=== PATIENT | male | born 1995 | race Two or more races ===

== ENCOUNTER 2021-07-30 14:12 | Emergency (ER) | payer SELFPAY ==
[2021-07-30] MEDS ORDERED: Sodium Chloride 0.9% 10 ML Syringe FLUSH PRN (14:55)
--- NOTE | 2021-07-30 15:38 | CR ---
Chest: Frontal view of the chest was obtained. Comparison: No prior chest imaging is available. Heart size and mediastinum are normal. Minimal density is seen within the left lung base. Lungs otherwise are clear. Bony structures show nothing acute. Impression: 1. Minimal density within the left lung base. Small area of pneumonia is possible likely COVID. Diagnostic code #3
--- NOTE | 2021-07-30 15:45 | EDM.PDOC ---
ED HPI GENERAL MEDICAL PROBLEM - General Chief Complaint: Chest Pain Stated Complaint: CHEST PAIN Time Seen by Provider: 07/30/21 14:55 Source of Information: Reports: Patient, RN Notes Reviewed History Limitations: Reports: No Limitations - History of Present Illness INITIAL COMMENTS - FREE TEXT/NARRATIVE: Patient is a 26-year-old male presenting to the emergency department with complaints of 2-day history of fever, cough, shortness of breath, chest pain, back pain. He tested positive for Covid yesterday. He has not vaccinated. T- max at home was 104.0. He is afebrile in ER and has not had Tylenol since 10 AM this morning. He describes a dull aching in his left chest since yesterday which is worse with taking a deep breath. He is tender in the chest as well. Denies any chronic health conditions. He is using Tylenol and ibuprofen as needed for fever and discomfort. Chest Pain Score (Numeric/FACES): 8 - Related Data Allergies Allergy/AdvReac Type Severity Reaction Status Date / Time No Known Allergies Allergy Verified 07/30/21 14:36 Home Meds: Home Meds dexAMETHasone [Decadron] 6 mg PO DAILY 5 Days #5 tablet 07/30/21 [Rx] Past Medical History Respiratory History: Reports: Asthma Immunologic History: Reports: AIDS - Infectious Disease History Infectious Disease History: Reports: Novel Coronavirus Social & Family History - Tobacco Use Tobacco Use Status *Q: Never Tobacco User - Caffeine Use Caffeine Use: Reports: Energy Drinks - Recreational Drug Use Recreational Drug Use: No ED ROS GENERAL - Review of Systems Review Of Systems: See Below Constitutional: Reports: Fever, Chills, Fatigue HEENT: Reports: No Symptoms Respiratory: Reports: Shortness of Breath, Pleuritic Chest Pain, Cough Cardiovascular: Reports: Chest Pain. Denies: Dyspnea on Exertion, Lightheadedness, Syncope Endocrine: Reports: No Symptoms GI/Abdominal: Reports: No Symptoms : Reports: No Symptoms Musculoskeletal: Reports: No Symptoms Skin: Reports: No Symptoms Neurological: Reports: No Symptoms Psychiatric: Reports: No Symptoms Hematologic/Lymphatic: Reports: No Symptoms Immunologic: Reports: No Symptoms ED EXAM, GENERAL - Physical Exam Exam: See Below Exam Limited By: No Limitations General Appearance: Alert, WD/WN, No Apparent Distress Respiratory/Chest: No Respiratory Distress, Lungs Clear, Normal Breath Sounds, No Accessory Muscle Use, Chest Non-Tender Cardiovascular: Normal Peripheral Pulses, Regular Rate, Rhythm, No Edema, No Gallop, No JVD, No Murmur, No Rub GI/Abdominal: Normal Bowel Sounds, Soft, Non-Tender, No Organomegaly, No Distention, No Abnormal Bruit, No Mass Neurological: Alert, Oriented, CN II-XII Intact, Normal Cognition, Normal Gait, Normal Reflexes, No Motor/Sensory Deficits Psychiatric: Normal Affect, Normal Mood Skin Exam: Warm, Dry, Intact, Normal Color, No Rash #1 Interpretation EKG Date: 07/30/21 Time: 14:23 Rhythm: NSR Rate (Beats/Min): 88 [place]: Normal P-Wave: Present QRS: Normal ST-T: Normal QT: Normal Course - Vital Signs Last Recorded V/S: Last Vital Signs Temp 98.1 F 07/30/21 14:32 Pulse 89 07/30/21 14:32 Resp 14 07/30/21 14:32 BP 131/91 H 07/30/21 14:32 Pulse Ox 96 07/30/21 14:32 - Orders/Labs/Meds Orders: Active Orders 24 hr Category Date Time Status Peripheral IV Insertion Adult [OM.PC] Stat Oth 07/30/21 14:55 Ordered Labs: Laboratory Tests 07/30/21 07/30/21 07/30/21 Range/Units 14:32 14:32 14:32 WBC 5.86 (4.23-9.07) K/mm3 RBC 5.49 (4.63-6.08) M/mm3 Hgb 15.5 (13.7-17.5) gm/dl Hct 47.7 (40.1-51.0) % MCV 86.9 (79.0-92.2) fl MCH 28.2 (25.7-32.2) pg MCHC 32.5 (32.2-35.5) g/dl RDW Std Deviation 45.7 H (35.1-43.9) fL Plt Count 238 (163-337) K/mm3 MPV 10.3 (9.4-12.3) fl Neut % (Auto) 47.2 (34.0-67.9) % Lymph % (Auto) 31.4 (21.8-53.1) % [place] % (Auto) 20.8 H (5.3-12.2) % Eos % (Auto) 0.3 L (0.8-7.0) Baso % (Auto) 0.3 (0.1-1.2) % Neut # (Auto) 2.76 (1.78-5.38) K/mm3 Lymph # (Auto) 1.84 (1.32-3.57) K/mm3 [place] # (Auto) 1.22 H (0.30-0.82) K/mm3 Eos # (Auto) 0.02 L (0.04-0.54) K/mm3 Baso # (Auto) 0.02 (0.01-0.08) K/mm3 Manual Slide Review Abnormal smear D-Dimer, Quantitative < 0.19 L (0.19-0.50) mg/L Sodium 142 (136-145) mEq/L Potassium 4.0 (3.5-5.1) mEq/L Chloride 106 (98-107) mEq/L Carbon Dioxide 30 (21-32) mEq/L Anion Gap 10.0 (5-15) BUN 15 (7-18) mg/dL Creatinine 1.1 (0.7-1.3) mg/dL Est Cr Clr Drug Dosing 101.77 mL/min Estimated GFR (MDRD) > 60 (>60) mL/min BUN/Creatinine Ratio 13.6 L (14-18) Glucose 88 (70-99) mg/dL Calcium 8.6 (8.5-10.1) mg/dL Total Bilirubin 0.3 (0.2-1.0) mg/dL AST 18 (15-37) U/L ALT 26 (16-63) U/L Alkaline Phosphatase 70 (46-116) U/L Troponin I < 0.017 (0.00-0.056) ng/mL C-Reactive Protein <0.2 (<1.0) mg/dL NT-Pro-B Natriuret Pep (0-125) pg/mL Total Protein 7.7 (6.4-8.2) g/dl Albumin 3.7 (3.4-5.0) g/dl Globulin 4.0 gm/dL Albumin/Globulin Ratio 0.9 L (1-2) 10/27/21 Range/Units 14:32 WBC (4.23-9.07) K/mm3 RBC (4.63-6.08) M/mm3 Hgb (13.7-17.5) gm/dl Hct (40.1-51.0) % MCV (79.0-92.2) fl MCH (25.7-32.2) pg MCHC (32.2-35.5) g/dl RDW Std Deviation (35.1-43.9) fL Plt Count (163-337) K/mm3 MPV (9.4-12.3) fl Neut % (Auto) (34.0-67.9) % Lymph % (Auto) (21.8-53.1) % [place] % (Auto) (5.3-12.2) % Eos % (Auto) (0.8-7.0) Baso % (Auto) (0.1-1.2) % Neut # (Auto) (1.78-5.38) K/mm3 Lymph # (Auto) (1.32-3.57) K/mm3 [place] # (Auto) (0.30-0.82) K/mm3 Eos # (Auto) (0.04-0.54) K/mm3 Baso # (Auto) (0.01-0.08) K/mm3 Manual Slide Review D-Dimer, Quantitative (0.19-0.50) mg/L Sodium (136-145) mEq/L Potassium (3.5-5.1) mEq/L Chloride (98-107) mEq/L Carbon Dioxide (21-32) mEq/L Anion Gap (5-15) BUN (7-18) mg/dL Creatinine (0.7-1.3) mg/dL Est Cr Clr Drug Dosing mL/min Estimated GFR (MDRD) (>60) mL/min BUN/Creatinine Ratio (14-18) Glucose (70-99) mg/dL Calcium (8.5-10.1) mg/dL Total Bilirubin (0.2-1.0) mg/dL AST (15-37) U/L ALT (16-63) U/L Alkaline Phosphatase (46-116) U/L Troponin I (0.00-0.056) ng/mL C-Reactive Protein (<1.0) mg/dL NT-Pro-B Natriuret Pep < 5 (0-125) pg/mL Total Protein (6.4-8.2) g/dl Albumin (3.4-5.0) g/dl Globulin gm/dL Albumin/Globulin Ratio (1-2) Meds: Medications Discontinued Medications Generic Name Dose Route Start Last Admin Trade Name Micah PRN Reason Stop Dose Admin Sodium Chloride 10 ml 07/30/21 14:55 07/30/21 14:57 Sodium Chloride 0.9% 10 Ml Syringe FLUSH 10 ml ASDIRECTED PRN Administration Keep Vein Open - Re-Assessments/Exams Free Text/Narrative Re-Assessment/Exam: Patient is a 26-year-old male presenting to the emergency department for evaluation of Covid symptoms. He reports left-sided chest discomfort. On exam, he is tender to palpation throughout his left-sided anterior chest wall. Exam is otherwise unremarkable. He is afebrile. Oxygen 96% on room air. I have ordered blood work, chest x-ray, EKG. 07/30/21 15:47 Hematology is unremarkable. D-dimer, troponin, CRP are undetectably low. EKG shows normal sinus rhythm at 88 with no evidence of acute ischemia. Chest x-ray shows a minimal density within the left lung base. Small areas of pneumonia is possible, likely Covid. Patient will be discharged home with prescription for dexamethasone. He will also be sent with a pulse oximeter. Discussed return precautions. Discharge instructions as document. Departure - Departure Time of Disposition: 16:43 Disposition: Home, Self-Care 01 Condition: Good Clinical Impression: COVID-19 Prescriptions: dexAMETHasone [Decadron] 6 mg PO DAILY 5 Days #5 tablet Instructions: COVID-19 Referrals: PCP,None [Primary Care Provider] - Forms: ED Department Discharge Additional Instructions: Take the dexamethasone as prescribed. Use Tylenol and ibuprofen as needed for fever and discomfort. Ensure you are taking an adequate amount of fluid. Check your oxygen saturations intermittently throughout the day. If you are maintaining a saturation of 88% or lower and not coming up after resting for 15 minutes, or you experience any other new or worsening symptoms of concern, ple ase return to the emergency department for reevaluation. Sepsis Event Note (ED) - Evaluation Sepsis Screening Result: No Definite Risk - Focused Exam Vital Signs: Vital Signs Temp Pulse Resp BP Pulse Ox 07/30/21 14:32 98.1 F 89 14 131/91 H 96 - My Orders Last 24 Hours: My Active Orders 07/30/21 14:55 Peripheral IV Insertion Adult [OM.PC] Stat - Assessment/Plan Last 24 Hours: My Active Orders 07/30/21 14:55 Peripheral IV Insertion Adult [OM.PC] Stat
== END 2021-07-30 16:58 | disposition home or self-care (01) ==
LOC: JD.ED 14:12
DX: U07.1 COVID-19 (principal)
CPT/HCPCS: 36415; 71045; 71045-26; 80053; 83880; 84484; 85025; 85379; 86140; 93005; 99285-25

== ENCOUNTER 2021-08-05 13:45 | Emergency (ER) | payer SELFPAY ==
[2021-08-05] MEDS ORDERED: FLU Vacc QS2021-22 36MOS UP/PF 60 MCG/0.5 ML Syringe IM ONE (14:45)
--- NOTE | 2021-08-05 15:34 | US ---
Right lower extremity deep venous ultrasound: Duplex and color Doppler evaluation was obtained of the right common femoral, proximal greater saphenous, superficial femoral, popliteal, posterior tibial and peroneal veins. Left common femoral vein was also evaluated. Comparison: No prior venous imaging is available. Findings: Visualized veins show normal phasic flow, augmentation and compression. Impression: 1. No findings of deep venous thrombosis within the right lower extremity or within the left common femoral vein. Diagnostic code #1
--- NOTE | 2021-08-05 15:41 | EDM.PDOC ---
ED HPI GENERAL MEDICAL PROBLEM - General Chief Complaint: Lower Extremity Injury/Pain Stated Complaint: COVID+ LEG PAINS Time Seen by Provider: 08/05/21 14:01 Source of Information: Reports: Patient History Limitations: Reports: No Limitations - History of Present Illness INITIAL COMMENTS - FREE TEXT/NARRATIVE: 26-year-old male presents the emergency department today with complaints of pain into the back of his right calf. Patient was diagnosed with Covid on July 29, 2021. He states that he has done fairly well with symptoms of Covid. However, over the past few days he has developed pain to the back of his right calf primarily in the popliteal space. He states that approximately 1 week ago his mother had Covid and due to a major PE. He is paranoid he may have a DVT as a result of Covid. Patient states he is otherwise healthy. Takes an 81 mg aspirin daily. Right Lower Leg Pain Score (Numeric/FACES): 8 - Related Data Allergies Allergy/AdvReac Type Severity Reaction Status Date / Time No Known Allergies Allergy Verified 08/05/21 14:05 Home Meds: Home Meds . [No Known Home Meds] 08/05/21 [History] Past Medical History Respiratory History: Reports: Asthma Immunologic History: Reports: AIDS - Infectious Disease History Infectious Disease History: Reports: Novel Coronavirus Social & Family History - Family History Family Medical History: No Pertinent Family History - Tobacco Use Tobacco Use Status *Q: Never Tobacco User Second Hand Smoke Exposure: No - Caffeine Use Caffeine Use: Reports: Energy Drinks - Recreational Drug Use Recreational Drug Use: No Review of Systems - Review of Systems Review Of Systems: Comprehensive ROS is negative, except as noted in HPI. ED EXAM, GENERAL - Physical Exam Exam: See Below Exam Limited By: No Limitations General Appearance: Alert, WD/WN, No Apparent Distress Ears: Normal External Exam, Hearing Grossly Normal Nose: Normal Inspection Throat/Mouth: Normal Inspection, Normal Lips, Normal Voice, No Airway Compromise Head: Atraumatic Neck: Normal Inspection, Supple Respiratory/Chest: No Respiratory Distress, Lungs Clear, Normal Breath Sounds, No Accessory Muscle Use, Chest Non-Tender Cardiovascular: Normal Peripheral Pulses, Regular Rate, Rhythm, No Edema, No Murmur Peripheral Pulses: 2+: Radial (L), Radial (R), Dorsalis Pedis (L), Dorsalis Pedis (R) GI/Abdominal: Normal Bowel Sounds, Soft, Non-Tender, No Distention (Male) Exam: Deferred Rectal (Males) Exam: Deferred Back Exam: Normal Inspection Extremities: Normal Inspection, Normal Range of Motion, No Pedal Edema, Normal Capillary Refill. No: Non-Tender (Tenderness noted to the back of the right calf and popliteal space) Neurological: Alert, Oriented, Normal Cognition Psychiatric: Normal Affect, Normal Mood Skin Exam: Warm, Dry, Intact, Normal Color, No Rash Lymphatic: No Adenopathy Course - Vital Signs Text/Narrative:: As stated above, patient presents with pain noted to the back of his left proximal calf area primarily in the popliteal space. Patient does complain of worsening pain when foot is flexed. I do not appreciate any warmth, redness or swelling to the area. Patient's vital signs are stable at this time. Lung sounds are clear. Will obtain ultrasound of the right lower extremity to rule out DVT. We will also obtain CBC, CMP and a magnesium level to check for any electrolyte abnormalities. Last Recorded V/S: Last Vital Signs Temp 97.9 F 08/05/21 13:59 Pulse 78 08/05/21 13:59 Resp 18 08/05/21 13:59 BP 142/92 H 08/05/21 13:59 Pulse Ox 98 08/05/21 13:59 - Orders/Labs/Meds Orders: Active Orders 24 hr Category Date Time Status Vaccine to be Administered/Admin Charge [RC] ASDIRECTED Care 08/05/21 14:09 Active Labs: Laboratory Tests 08/05/21 08/05/21 Range/Units 15:36 15:36 WBC 11.11 H (4.23-9.07) K/mm3 RBC 5.61 (4.63-6.08) M/mm3 Hgb 15.8 (13.7-17.5) gm/dl Hct 48.4 (40.1-51.0) % MCV 86.3 (79.0-92.2) fl MCH 28.2 (25.7-32.2) pg MCHC 32.6 (32.2-35.5) g/dl RDW Std Deviation 45.1 H (35.1-43.9) fL Plt Count 281 (163-337) K/mm3 MPV 10.0 (9.4-12.3) fl Neut % (Auto) 57.1 (34.0-67.9) % Lymph % (Auto) 29.1 (21.8-53.1) % [place] % (Auto) 11.8 (5.3-12.2) % Eos % (Auto) 0.3 L (0.8-7.0) Baso % (Auto) 0.3 (0.1-1.2) % Neut # (Auto) 6.35 H (1.78-5.38) K/mm3 Lymph # (Auto) 3.23 (1.32-3.57) K/mm3 [place] # (Auto) 1.31 H (0.30-0.82) K/mm3 Eos # (Auto) 0.03 L (0.04-0.54) K/mm3 Baso # (Auto) 0.03 (0.01-0.08) K/mm3 Sodium 142 (136-145) mEq/L Potassium 3.9 (3.5-5.1) mEq/L Chloride 106 (98-107) mEq/L Carbon Dioxide 30 (21-32) mEq/L Anion Gap 9.9 (5-15) BUN 23 H (7-18) mg/dL Creatinine 1.0 (0.7-1.3) mg/dL Est Cr Clr Drug Dosing 111.94 mL/min Estimated GFR (MDRD) > 60 (>60) mL/min BUN/Creatinine Ratio 23.0 H (14-18) Glucose 95 (70-99) mg/dL Calcium 8.6 (8.5-10.1) mg/dL Magnesium 2.0 (1.8-2.4) mg/dL Total Bilirubin 0.3 (0.2-1.0) mg/dL AST 27 (15-37) U/L ALT 71 H (16-63) U/L Alkaline Phosphatase 78 (46-116) U/L Total Protein 7.4 (6.4-8.2) g/dl Albumin 3.5 (3.4-5.0) g/dl Globulin 3.9 gm/dL Albumin/Globulin Ratio 0.9 L (1-2) Meds: Medications Discontinued Medications Generic Name Dose Route Start Last Admin Trade Name Freq PRN Reason Stop Dose Admin Influenza Virus Vaccine 60 mcg 08/05/21 14:45 08/05/21 15:25 Flu Vacc [id number] 36mos Up/Pf 60 Mcg/0.5 Ml Syringe IM 08/05/21 14:46 60 mcg .ONCE ONE Administration - Re-Assessments/Exams Free Text/Narrative Re-Assessment/Exam: 08/05/21 15:40 Radiologist impression right lower extremity deep venous ultrasound: 1. No findings of deep venous thrombosis within the right lower extremity or within the left common femoral vein. 08/05/21 16:44 Hematology reveals a WBC of 11.11, hemoglobin 15.8, hematocrit 48.4, platelet count 281 Chemistry reveals a sodium of 142, potassium 3.9, chloride 106, anion gap 9.9, BUN 23, creatinine 1.0, glucose 95, magnesium 2.0 Patient discomfort to right leg likely musculoskeletal in origin. He will be discharged home with recommendations that he take ibuprofen or Tylenol per label recommendations for the discomfort. Departure - Departure Time of Disposition: 16:45 Disposition: Home, Self-Care 01 Condition: Good Clinical Impression: Pain in right leg - Discharge Information Instructions: Pain Medicine Instructions, [id number] Referrals: PCP,None [Primary Care Provider] - Forms: ED Department Discharge Additional Instructions: You were seen in the emergency department today with complaints of pain noted behind your right knee/upper calf. Ultrasound of the right leg was completed which showed no signs of a blood clot in your right leg. Lab studies were completed and these were essentially unremarkable. Your electrolytes are all well within normal limits. Discomfort in right leg is likely due to musculoskeletal pain. Recommend taking Tylenol 650 mg every 4 hours or ibuprofen 600 mg every 6-8 hours as needed for the discomfort. May try to apply ice or heat for comfort. Should your condition worsen or change, do not hesitate returning to the emergency department. Sepsis Event Note (ED) - Evaluation Sepsis Screening Result: No Definite Risk - Focused Exam Vital Signs: Vital Signs Temp Pulse Resp BP Pulse Ox 08/05/21 13:59 97.9 F 78 18 142/92 H 98 - My Orders Last 24 Hours: My Active Orders 08/05/21 14:09 Vaccine to be Administered/Admin Charge [RC] ASDIRECTED - Assessment/Plan Last 24 Hours: My Active Orders 08/05/21 14:09 Vaccine to be Administered/Admin Charge [RC] ASDIRECTED
== END 2021-08-05 17:00 | disposition home or self-care (01) ==
LOC: JD.ED 13:45
DX: M79.604 Pain in right leg (principal); Z86.16 Personal history of COVID-19; Z23 Encounter for immunization
CPT/HCPCS: 36415; 80053; 83735; 85025; 90686; 93971-26-RT; 93971-RT; 99283; 99284-25; G0008